=== PATIENT | female | born 1990 | race Caucasian/White ===

== ENCOUNTER → 2018-11-26 | Outpatient (CLI) | payer OTHER ==
[~2018-11-26] MED LIST: ALBU90OI INH; AMOCLA875 PO; AMOX500 PO; AZIT250 PO; BENZ100A PO; BUPR150T2 PO; BUPR75 PO; CEPH500 PO; CIPR250 PO; CIPR500 PO; CIPR750 PO; CLON.2 PO; CYCL10 PO; Cleocin HCl300 MG PO; DIAZ5 PO; DICY20 PO; DOCU100 PO; FENT75TP TOP; HYDACE25S PR; HYDACE5 PO; HYDACE5325 PO; HYDMOR8 PO; IBUP600 PO; IBUP800 PO; LORA1 PO; METCAR750 PO; METR500 PO; MULVITMINE PO; NAPR375 PO; NAPR500 PO; NAPR550 PO; ONDA4 PO; OXYACE5T PO; PHENA100 PO; PHENA200 PO; PRED20 PO; PROM25 PO; PROM25S PR; PSEU30 PO; RIFA300 PO; RXCYCL10 PO; RXHYD5325 PO; RXONDA4ODT MM; RXTRAM50 PO; SULTRIDS PO; TEMA15 PO; TOBR.3OPSO OP; TRAM50 PO; Verotin-Gr Cap1 EACH; Verotin-Gr Cap1 EACH PO; ZOLM2.5 PO; Zofran Odt8 MG SL
[2018-11-27 14:27] LABS: Candida species (DNA Probe) Negative (NEGATIVE); G. vaginalis (DNA Probe) Positive (NEGATIVE); T. vaginalis (DNA Probe) Negative (NEGATIVE)
[2018-11-30 00:06] LABS: CHLAMYDIA TRACHOMATIS, NAA Negative (Negative); NEISSERIA GONORRHOEAE, NAA Negative (Negative)
== END ==
LOC: LAB SHORT 15:34 → LAB 15:34
PROVIDERS: Nurse Practitioner Family
DX: N89.8 Other specified noninflammatory disorders of vagina (principal); Z72.51 High risk heterosexual behavior
CPT/HCPCS: 87480; 87491; 87510; 87591; 87660

== ENCOUNTER → 2019-12-09 | Outpatient (CLI) | payer OTHER ==
[2019-12-10 06:25] LABS: Candida species (DNA Probe) Positive (NEGATIVE); G. vaginalis (DNA Probe) Negative (NEGATIVE); T. vaginalis (DNA Probe) Negative (NEGATIVE)
[2019-12-11 21:09] LABS: CHLAMYDIA TRACHOMATIS, NAA Negative (Negative); NEISSERIA GONORRHOEAE, NAA Negative (Negative)
== END | disposition home or self-care (01) ==
LOC: LAB SHORT 13:15 → LAB 13:15
PROVIDERS: Nurse Practitioner Family
DX: N93.9 Abnormal uterine and vaginal bleeding, unspecified (principal); R10.2 Pelvic and perineal pain
CPT/HCPCS: 87480; 87491; 87510; 87591; 87660